=== PATIENT | female | born 1980 | race Caucasian/White ===

== ENCOUNTER 2023-12-31 23:24 | Emergency (ER) | payer BC ==
[~2023-12-31] VITALS: Ht 170.2 cm; Wt 81.6 kg
[2023-12-31 23:49] VITALS: TEMP 98.6
[2024-01-01] MEDS ORDERED: LORAZEPAM INJ 2 MG/ML VIAL ONE (00:17)
[2024-01-01] MEDS ORDERED: ONDANSETRON HCL/PF 4 MG/2 ML VIAL ONE (00:17)
[2024-01-01] MEDS: IV NS 0.9% 1,000 ML BAG IV ONE (00:30)
[2024-01-01] MEDS: LORAZEPAM INJ 2 MG/ML VIAL IV ONE (00:30)
[2024-01-01] MEDS: ONDANSETRON HCL/PF 4 MG/2 ML VIAL IVP ONE (00:31)
[2024-01-01 01:09] VITALS: BP 124/80; O2SAT 100
== END 2024-01-01 01:10 | disposition home or self-care (01) ==
LOC: ER 23:30
DX: F15.23 Other stimulant dependence with withdrawal (principal)
CPT/HCPCS: 99284; 96374; 96361; 96375; J2060; J2405; J7030